=== PATIENT | female | born 1965 ===

== ENCOUNTER 2024-12-31 06:20 | Day surgery (SDC) | payer BC, SELFPAY | END 2024-12-31 15:39 | disposition home or self-care (01) | LOC: GI 06:20 | PROVIDERS: ATTENDING PHYSICIAN Internal Medicine Gastroenterology | DX: D50.0 Iron deficiency anemia secondary to blood loss (chronic) (principal); K57.30 Diverticulosis of large intestine without perforation or abscess without bleeding; R12 Heartburn; K44.9 Diaphragmatic hernia without obstruction or gangrene; Z83.719 Family history of colon polyps, unspecified | CPT/HCPCS: 45378; 43239; 88305 ==